=== PATIENT | female | born 1960 | race Caucasian/White ===

== ENCOUNTER 2018-05-01 22:22 | Inpatient (IN) | payer BC ==
[~2018-05-01] VITALS: Ht 170.2 cm; Wt 83.3 kg
[2018-05-02 00:09] LABS: Basophils # (auto) 0 uL; Eosinophils # (auto) 0 uL; Lymphocytes # (auto) 0.6 uL; Nucleated Red Blood Cells % 0.1 %; White Blood Cell 5.6 10^3/uL (4.4-10.8)
[2018-05-02 00:11] LABS: Basophils % (auto) 0.2 % (0.0-2.0); Eosinophils % (auto) 0.1 % (0.0-7.0); Hemoglobin 8.8 g/dL (12.2-16.2); Lymphocytes % (auto) 10.8 % (10.0-50.0); Mean Corpuscular Hemoglobin 21.8 pg (28.0-32.0); Mean Corpuscular Hgb Conc. 30.3 g/dL (32.0-36.0); Mean Corpuscular Volume 71.9 fL (80.0-100.0); Monocytes # (auto) 0.8 uL; Monocytes % (auto) 14.6 % (0.0-12.0); Neutrophils # (auto) 4.2 uL; Neutrophils % (auto) 74.3 % (37.0-80.0); Platelet Count (auto) 197 10^3/uL (140-450); Red Blood Cells 4.04 10^6/uL (4.0-5.20)
[2018-05-02 00:18] LABS: Red Cell Distribution Width 21.7 % (11.8-14.3)
[2018-05-02 00:20] LABS: Urine Bacteria FEW /hpf (None Seen); Urine Blood TRACE /uL (Negative); Urine Hyaline Cast MANY /lpf (0 - 2); Urine Specific Gravity 1.009 (1.001-1.035); Urine WBC 7 /hpf (0 - 5)
[2018-05-02 00:22] LABS: Alanine Aminotransferase 26 U/L (13-56); Albumin 3.3 g/dL (3.4-5.0); Anion Gap 18 (5-15); Aspartate Aminotransferase 32 U/L (15-37); BUN/Creatinine Ratio 14.8; Blood Alcohol < 3.0 mg/dL (0-5); Blood Urea Nitrogen 43 mg/dL (7-18); Calcium 8.6 mg/dL (8.5-10.1); Carbon Dioxide 17 mmol/L (21-32); Chloride 99 mmol/L (98-107); GFR African American 22 mL/min; GFR Non-African American 18 mL/min; Glucose 88 mg/dL (74-106); Magnesium 2.5 mg/dL (1.6-2.6); Potassium 4.5 mmol/L (3.5-5.1); Sodium 134 mmol/L (136-145)
[2018-05-02 00:24] LABS: INR 1.45 (0.9-1.15); Partial Thromboplastin Time 29.8 sec (23.78-33.04); Prothrombin Time 15.2 sec (9.27-12.13)
[2018-05-02 00:27] LABS: Alkaline Phosphatase 119 U/L (45-117); Bilirubin, Total 1.3 mg/dL (0.2-1.0); Total Protein 6.8 g/dL (6.4-8.2)
[2018-05-02] MEDS ORDERED: ONDANSETRON HCL 4 MG/2 ML VIAL IV PRN (05:30)
[2018-05-02] MEDS ORDERED: ACETAMINOPHEN 500 MG TAB PO PRN (05:30)
[2018-05-02] MEDS: ALBUTEROL SULF 2.5 MG/0.5ML(0.5%) NEB SOLN NEB SCH ×3 (06:25→18:10)
[2018-05-02] MEDS: IPRATROPIUM BROM 0.5 MG/2.5ML INH SOL NEB SCH ×3 (06:25→18:10)
[2018-05-02] MEDS: AZITHROMYCIN 500MG/ 250ML 250 ML IV SCH (06:34)
[2018-05-02 06:49] LABS: Basophils # (auto) 0 uL; Eosinophils # (auto) 0 uL; Hemoglobin 9.8 g/dL (12.2-16.2); Mean Corpuscular Hgb Conc. 30.4 g/dL (32.0-36.0); Monocytes # (auto) 0.4 uL; Nucleated Red Blood Cells % 0.2 %
[2018-05-02 06:51] LABS: Eosinophils % (auto) 0.1 % (0.0-7.0); Hematocrit 32.2 % (36.0-46.0); Lymphocytes # (auto) 0.9 uL; Lymphocytes % (auto) 20.4 % (10.0-50.0); Mean Corpuscular Hemoglobin 21.8 pg (28.0-32.0); Mean Corpuscular Volume 71.9 fL (80.0-100.0); Monocytes % (auto) 10.1 % (0.0-12.0); Neutrophils % (auto) 68.4 % (37.0-80.0); Platelet Count (auto) 184 10^3/uL (140-450); Red Blood Cells 4.48 10^6/uL (4.0-5.20); White Blood Cell 4.5 10^3/uL (4.4-10.8)
[2018-05-02 06:54] VITALS: BP 104/80
[2018-05-02 06:57] LABS: Red Cell Distribution Width 22.6 % (11.8-14.3)
[2018-05-02 07:07] LABS: BUN/Creatinine Ratio 16.9; Calcium 8.6 mg/dL (8.5-10.1); Potassium 4.6 mmol/L (3.5-5.1)
[2018-05-02] MEDS: LEVOTHYROXINE SODIUM 50 MCG TAB PO SCH (07:11)
[2018-05-02] MEDS ORDERED: LOSARTAN POTASSIUM 25 MG TAB PO SCH (10:00)
[2018-05-02] MEDS: SPIRONOLACTONE 25 MG TAB PO SCH (10:06)
[2018-05-02] MEDS: PANTOPRAZOLE 40 MG TAB PO SCH (10:06)
[2018-05-02] MEDS: FUROSEMIDE 40 MG/4 ML VIAL IV SCH (10:06)
[2018-05-02 10:20] VITALS: BP 112/63
[2018-05-02] MEDS: HYDROcodone-ACET 5/325MG TAB PO PRN ×3 (12:04→22:28)
[2018-05-02 12:49] VITALS: BP 94/51
[2018-05-02 12:51] VITALS: BP 96/64
[2018-05-02] MEDS ORDERED: cefTRIAXone 1GM/10ml IVPUSH 10 ML IV ONE (14:00)
[2018-05-02 15:08] LABS: % Iron Saturation 3.8 % (15-50)
[2018-05-02 17:00] VITALS: BP 91/50
[2018-05-02 22:00] VITALS: BP 116/85
[2018-05-02] MEDS: TEMAZEPAM 15 MG CAP PO PRN (23:15)
[2018-05-03 05:00] VITALS: BP 108/75
[2018-05-03 06:10] LABS: Basophils # (auto) 0.1 uL; Lymphocytes # (auto) 1.3 uL; Mean Corpuscular Hgb Conc. 31.9 g/dL (32.0-36.0); Nucleated Red Blood Cells % 0.1 %
[2018-05-03 06:12] LABS: Basophils % (auto) 2.2 % (0.0-2.0); Eosinophils # (auto) 0 uL; Eosinophils % (auto) 0.8 % (0.0-7.0); Hematocrit 28.1 % (36.0-46.0); Lymphocytes % (auto) 34.8 % (10.0-50.0); Mean Corpuscular Hemoglobin 22.5 pg (28.0-32.0); Mean Corpuscular Volume 70.4 fL (80.0-100.0); Monocytes # (auto) 0.6 uL; Monocytes % (auto) 14.7 % (0.0-12.0); Neutrophils # (auto) 1.8 uL; Neutrophils % (auto) 47.5 % (37.0-80.0); Platelet Count (auto) 202 10^3/uL (140-450); Red Blood Cells 3.99 10^6/uL (4.0-5.20); White Blood Cell 3.8 10^3/uL (4.4-10.8)
[2018-05-03] MEDS: LEVOTHYROXINE SODIUM 50 MCG TAB PO SCH (06:22)
[2018-05-03 06:36] LABS: Albumin 3.1 g/dL (3.4-5.0); BUN/Creatinine Ratio 18.1; Bilirubin, Total 0.7 mg/dL (0.2-1.0); Calcium 8.3 mg/dL (8.5-10.1); Magnesium 2.6 mg/dL (1.6-2.6); Potassium 4.9 mmol/L (3.5-5.1); Total Protein 6.4 g/dL (6.4-8.2)
[2018-05-03 06:43] LABS: Red Cell Distribution Width 22.3 % (11.8-14.3)
[2018-05-03] MEDS: ALBUTEROL SULF 2.5 MG/0.5ML(0.5%) NEB SOLN NEB SCH ×4 (06:54→19:04)
[2018-05-03] MEDS: IPRATROPIUM BROM 0.5 MG/2.5ML INH SOL NEB SCH ×4 (06:54→19:04)
[2018-05-03 08:24] VITALS: BP 114/87
[2018-05-03] MEDS: FUROSEMIDE 40 MG/4 ML VIAL IV SCH (09:51)
[2018-05-03] MEDS: cefTRIAXone 1GM/10ml IVPUSH 10 ML IV SCH (09:51)
[2018-05-03] MEDS: HYDROcodone-ACET 5/325MG TAB PO PRN ×2 (09:52→20:15)
[2018-05-03] MEDS: SPIRONOLACTONE 25 MG TAB PO SCH (09:52)
[2018-05-03] MEDS: PANTOPRAZOLE 40 MG TAB PO SCH (09:52)
[2018-05-03] MEDS: AZITHROMYCIN 500MG/ 250ML 250 ML IV SCH (09:53)
[2018-05-03 13:00] VITALS: BP 101/68
[2018-05-03 17:00] VITALS: BP_SYST 68
[2018-05-03 21:54] VITALS: BP 108/77
[2018-05-03] MEDS: TEMAZEPAM 15 MG CAP PO PRN (23:12)
[2018-05-04] MEDS: ALBUTEROL SULF 2.5 MG/0.5ML(0.5%) NEB SOLN NEB SCH ×4 (00:25→19:08)
[2018-05-04] MEDS: IPRATROPIUM BROM 0.5 MG/2.5ML INH SOL NEB SCH ×4 (00:25→19:08)
[2018-05-04 04:41] VITALS: BP 124/67
[2018-05-04] MEDS: LEVOTHYROXINE SODIUM 50 MCG TAB PO SCH (06:28)
[2018-05-04] MEDS: HYDROcodone-ACET 5/325MG TAB PO PRN ×3 (06:31→22:15)
[2018-05-04 06:42] LABS: Calcium 8.4 mg/dL (8.5-10.1)
[2018-05-04 06:44] LABS: BUN/Creatinine Ratio 20.7
[2018-05-04 07:48] VITALS: BP 98/72
[2018-05-04] MEDS: cefTRIAXone 1GM/10ml IVPUSH 10 ML IV SCH (09:33)
[2018-05-04] MEDS: AZITHROMYCIN 500MG/ 250ML 250 ML IV SCH (09:33)
[2018-05-04] MEDS: FUROSEMIDE 40 MG/4 ML VIAL IV SCH (09:37)
[2018-05-04] MEDS: PANTOPRAZOLE 40 MG TAB PO SCH (09:38)
[2018-05-04] MEDS: SPIRONOLACTONE 25 MG TAB PO SCH (09:38)
[2018-05-04] MEDS ORDERED: TADA20TA33 PO (11:47)
[2018-05-04] MEDS ORDERED: AMBR10TA3 PO (11:47)
[2018-05-04] MEDS ORDERED: LEVO25TA6 PO (11:50)
[2018-05-04] MEDS ORDERED: LOSA25TA9 PO (11:50)
[2018-05-04] MEDS ORDERED: SPIR25TA89 PO (11:50)
[2018-05-04] MEDS ORDERED: FURO40TA PO (11:50)
[2018-05-04] MEDS ORDERED: OMEP20TA PO (11:50)
[2018-05-04 12:29] VITALS: BP 100/70
[2018-05-04] MEDS ORDERED: FUROSEMIDE 20 MG/2 ML VIAL IV ONE (15:15)
[2018-05-04 17:25] VITALS: BP 110/78
[2018-05-04 21:55] VITALS: BP 124/81
[2018-05-04] MEDS: TEMAZEPAM 15 MG CAP PO PRN (22:15)
[2018-05-05] MEDS: ALBUTEROL SULF 2.5 MG/0.5ML(0.5%) NEB SOLN NEB SCH ×4 (01:21→20:28)
[2018-05-05] MEDS: IPRATROPIUM BROM 0.5 MG/2.5ML INH SOL NEB SCH ×4 (01:21→20:27)
[2018-05-05 04:59] VITALS: BP 127/94
[2018-05-05 06:26] LABS: Hematocrit 31.8 % (36.0-46.0); Hemoglobin 9.9 g/dL (12.2-16.2)
[2018-05-05 06:35] LABS: BUN/Creatinine Ratio 20.3; Calcium 8.3 mg/dL (8.5-10.1); Potassium 4.4 mmol/L (3.5-5.1)
[2018-05-05] MEDS: LEVOTHYROXINE SODIUM 50 MCG TAB PO SCH (06:50)
[2018-05-05] MEDS: HYDROcodone-ACET 5/325MG TAB PO PRN ×4 (06:50→22:32)
[2018-05-05 08:57] VITALS: BP 113/81
[2018-05-05 09:00] VITALS: BP 113/81
[2018-05-05] MEDS: cefTRIAXone 1GM/10ml IVPUSH 10 ML IV SCH (09:27)
[2018-05-05] MEDS: FUROSEMIDE 40 MG/4 ML VIAL IV SCH (09:28)
[2018-05-05] MEDS: AZITHROMYCIN 500MG/ 250ML 250 ML IV SCH (09:28)
[2018-05-05] MEDS: SPIRONOLACTONE 25 MG TAB PO SCH (09:28)
[2018-05-05] MEDS: PANTOPRAZOLE 40 MG TAB PO SCH (09:28)
[2018-05-05 13:00] VITALS: BP 105/69
[2018-05-05 17:00] VITALS: BP 127/95
[2018-05-05 22:00] VITALS: BP 149/95
[2018-05-05] MEDS: TEMAZEPAM 15 MG CAP PO PRN (22:32)
[2018-05-06] MEDS: ALBUTEROL SULF 2.5 MG/0.5ML(0.5%) NEB SOLN NEB SCH ×4 (01:12→18:28)
[2018-05-06] MEDS: IPRATROPIUM BROM 0.5 MG/2.5ML INH SOL NEB SCH ×4 (01:12→18:28)
[2018-05-06] MEDS: HYDROcodone-ACET 5/325MG TAB PO PRN ×2 (03:32→09:57)
[2018-05-06 05:01] VITALS: BP 144/76
[2018-05-06] MEDS: LEVOTHYROXINE SODIUM 50 MCG TAB PO SCH (06:16)
[2018-05-06 06:53] LABS: BUN/Creatinine Ratio 18.7; Calcium 8.5 mg/dL (8.5-10.1); Potassium 4.2 mmol/L (3.5-5.1)
[2018-05-06 08:50] VITALS: BP 115/78
[2018-05-06] MEDS: AZITHROMYCIN 500MG/ 250ML 250 ML IV SCH (09:54)
[2018-05-06] MEDS: cefTRIAXone 1GM/10ml IVPUSH 10 ML IV SCH (09:55)
[2018-05-06] MEDS: FUROSEMIDE 40 MG/4 ML VIAL IV SCH (09:55)
[2018-05-06] MEDS: PANTOPRAZOLE 40 MG TAB PO SCH (09:55)
[2018-05-06] MEDS: SPIRONOLACTONE 25 MG TAB PO SCH (09:56)
[2018-05-06 13:00] VITALS: BP 127/90
[2018-05-06 16:54] VITALS: BP 122/87
[2018-05-06 18:38] VITALS: BP 129/102
[2018-05-07] MEDS ORDERED: LOSA25TA9 PO (19:17)
[2018-05-07] MEDS ORDERED: FURO40TA PO (19:17)
[2018-05-07] MEDS ORDERED: SPIR25TA89 PO (19:17)
[2018-05-07] MEDS ORDERED: TADA5TAB11 PO (19:17)
[2018-05-07] MEDS ORDERED: LEVO150T10 PO (19:17)
== END 2018-05-06 19:30 | disposition home or self-care (01) | DRG 280 ==
LOC: EDBD 22:22 → ER 22:39 → TELE 22:40 → TELE-EAST 05-02 09:12
PROVIDERS: ADMIT Nurse Practitioner Family; ATTEND Internal Medicine Pulmonary Disease
DX: I21.4 Non-ST elevation (NSTEMI) myocardial infarction (principal); G93.41 Metabolic encephalopathy; I50.43 Acute on chronic combined systolic (congestive) and diastolic (congestive) heart failure; J96.20 Acute and chronic respiratory failure, unspecified whether with hypoxia or hypercapnia; N17.0 Acute kidney failure with tubular necrosis; J69.0 Pneumonitis due to inhalation of food and vomit; E87.1 Hypo-osmolality and hyponatremia; I13.0 Hypertensive heart and chronic kidney disease with heart failure and stage 1 through stage 4 chronic kidney disease, or unspecified chronic kidney disease; J44.0 Chronic obstructive pulmonary disease with (acute) lower respiratory infection; L03.116 Cellulitis of left lower limb; E44.0 Moderate protein-calorie malnutrition; I07.1 Rheumatic tricuspid insufficiency; F15.10 Other stimulant abuse, uncomplicated; S83.91XA Sprain of unspecified site of right knee, initial encounter; E03.9 Hypothyroidism, unspecified; W18.2XXA Fall in (into) shower or empty bathtub, initial encounter; I25.10 Atherosclerotic heart disease of native coronary artery without angina pectoris; I27.24 Chronic thromboembolic pulmonary hypertension; D63.8 Anemia in other chronic diseases classified elsewhere; D50.9 Iron deficiency anemia, unspecified; S83.92XA Sprain of unspecified site of left knee, initial encounter; N18.3 Chronic kidney disease, stage 3 (moderate); K21.9 Gastro-esophageal reflux disease without esophagitis; I27.21 Secondary pulmonary arterial hypertension; S73.102A Unspecified sprain of left hip, initial encounter; S73.101A Unspecified sprain of right hip, initial encounter; Z88.1 Allergy status to other antibiotic agents; Z88.8 Allergy status to other drugs, medicaments and biological substances; Y92.89 Other specified places as the place of occurrence of the external cause; Y99.8 Other external cause status; Z79.899 Other long term (current) drug therapy; Y93.E1 Activity, personal bathing and showering; Z79.01 Long term (current) use of anticoagulants; Z82.49 Family history of ischemic heart disease and other diseases of the circulatory system; Z87.891 Personal history of nicotine dependence; Z99.81 Dependence on supplemental oxygen; Z68.28 Body mass index [BMI] 28.0-28.9, adult
CPT/HCPCS: 36415; 51702; 70450; 71045; 72170; 73070; 73560; 80048; 80053; 80061; 80320; 81001; 82270; 83540; 83550; 83735; 83880; 84443; 84484; 85014; 85018; 85025; 85610; 85730; 87040; 87070; 87205; 93005; 93306; 93970; 94640; 94761; 96374; 97110; 97116; 97163; 97530; 99291; J0696

== ENCOUNTER 2018-05-07 08:01 | Inpatient (IN) | payer BC ==
[~2018-05-07] VITALS: Ht 170.2 cm; Wt 81.0 kg
[~2018-05-07 08:01] MED LIST: AMBR10TA3 PO; LEVO25TA6 PO; LOSA25TA9 PO; OMEP20TA PO; SPIR25TA89 PO
[2018-05-07 09:53] LABS: Basophils # (auto) 0.1 uL; Eosinophils # (auto) 0 uL; Monocytes # (auto) 0.5 uL; Neutrophils # (auto) 2.9 uL; Nucleated Red Blood Cells % 0.1 %; Platelet Count (auto) 221 10^3/uL (140-450)
[2018-05-07 09:55] LABS: Basophils % (auto) 1.1 % (0.0-2.0); Eosinophils % (auto) 0.8 % (0.0-7.0); Hemoglobin 9.4 g/dL (12.2-16.2); Lymphocytes # (auto) 1.1 uL; Lymphocytes % (auto) 23.1 % (10.0-50.0); Mean Corpuscular Hemoglobin 21.3 pg (28.0-32.0); Mean Corpuscular Hgb Conc. 29.4 g/dL (32.0-36.0); Mean Corpuscular Volume 72.3 fL (80.0-100.0); Monocytes % (auto) 11.3 % (0.0-12.0); Neutrophils % (auto) 63.7 % (37.0-80.0); Red Blood Cells 4.43 10^6/uL (4.0-5.20); White Blood Cell 4.6 10^3/uL (4.4-10.8)
[2018-05-07 09:56] LABS: Red Cell Distribution Width 22.7 % (11.8-14.3)
[2018-05-07 10:14] LABS: Albumin 3.2 g/dL (3.4-5.0); BUN/Creatinine Ratio 20.8; Bilirubin, Total 0.6 mg/dL (0.2-1.0); Calcium 8.2 mg/dL (8.5-10.1); Magnesium 2.4 mg/dL (1.6-2.6); Potassium 4.6 mmol/L (3.5-5.1)
[2018-05-07 10:16] LABS: Urine Bacteria NONE SEEN /hpf (None Seen); Urine Blood Negative /uL (Negative); Urine Hyaline Cast FEW /lpf (0 - 2); Urine Specific Gravity 1.008 (1.001-1.035); Urine WBC 4 /hpf (0 - 5)
[2018-05-07] MEDS ORDERED: methylPREDNISolone SOD SUCC 125 MG/2 ML VL IV ONE (10:30)
[2018-05-07] MEDS ORDERED: FUROSEMIDE 40 MG/4 ML VIAL IV ONE ×2 (11:15→14:45)
[2018-05-07] MEDS ORDERED: MORPHINE SULF INJ 2 MG/ML SYRINGE 1ML IV ONE (12:45)
[2018-05-07] MEDS ORDERED: LEVOFLOXACIN 250MG 50 ML IV ONE (14:00)
[2018-05-07] MEDS ORDERED: AZITHROMYCIN 250 MG TAB PO ONE (14:15)
[2018-05-07] MEDS ORDERED: NITROGLYCERIN 0.4 MG SL TAB SL PRN (14:15)
[2018-05-07] MEDS ORDERED: ACETAMINOPHEN 325 MG TAB PO PRN (14:15)
[2018-05-07] MEDS ORDERED: MORPHINE SULF INJ 2 MG/ML SYRINGE 1ML IV PRN (14:15)
[2018-05-07] MEDS ORDERED: LEVOFLOXACIN 500MG 100 ML IV ONE (14:30)
[2018-05-07] MEDS ORDERED: PANTOPRAZOLE 40 MG TAB PO ONE (14:45)
[2018-05-07] MEDS ORDERED: LOSARTAN POTASSIUM 25 MG TAB PO ONE (14:45)
[2018-05-07] MEDS ORDERED: POTASSIUM CHL 10 Meq TABLET PO ONE (14:45)
[2018-05-07] MEDS ORDERED: methylPREDNISolone SOD SUCC 40 MG/ML VL IV ONE (14:45)
[2018-05-07] MEDS: LEVOTHYROXINE SODIUM 25 MCG TAB PO ONE ×2 (14:50→14:59)
[2018-05-07 15:03] LABS: Lactic Acid w/Reflex 2.7 mmol/L (0.4-2.0)
[2018-05-07] MEDS: HYDROcodone-ACET 5/325MG TAB PO PRN (15:47)
[2018-05-07 16:00] VITALS: BP 135/103
[2018-05-07] MEDS: IPRATROPIUM BROM 0.5 MG/2.5ML INH SOL NEB PRN (16:36)
[2018-05-07] MEDS: ALBUTEROL SULF 2.5 MG/0.5ML(0.5%) NEB SOLN NEB PRN (16:36)
[2018-05-07] MEDS: SPIRONOLACTONE 25 MG TAB PO SCH (17:35)
[2018-05-07] MEDS: MORPHINE SULF INJ 2 MG/ML SYRINGE 1ML IV PRN ×2 (17:36→21:47)
[2018-05-07] MEDS: FUROSEMIDE 40 MG/4 ML VIAL IV SCH (17:36)
[2018-05-07] MEDS: methylPREDNISolone SOD SUCC 40 MG/ML VL IV SCH ×2 (17:36→23:57)
[2018-05-07 17:37] VITALS: BP 129/108
[2018-05-07] MEDS: ONDANSETRON HCL 4 MG/2 ML VIAL IV PRN ×2 (18:11→21:48)
[2018-05-07] MEDS: ALBUTEROL SULF 2.5 MG/0.5ML(0.5%) NEB SOLN NEB SCH (19:11)
[2018-05-07] MEDS: IPRATROPIUM BROM 0.5 MG/2.5ML INH SOL NEB SCH (19:11)
[2018-05-07] MEDS ORDERED: SPIR25TA89 PO (19:17)
[2018-05-07] MEDS ORDERED: LEVO150T10 PO (19:17)
[2018-05-07] MEDS ORDERED: FURO40TA PO (19:17)
[2018-05-07] MEDS ORDERED: LOSA25TA9 PO (19:17)
[2018-05-07] MEDS ORDERED: TADA5TAB11 PO (19:17)
[2018-05-07] MEDS: SODIUM CHLOR 0.9% PF (SALINE LOCK) 10ML VIAL/SYR IV SCH (21:48)
[2018-05-07] MEDS: TADALAFIL 20 MG PO SCH (21:48)
[2018-05-07] MEDS: POTASSIUM CHL 10 Meq TABLET PO SCH (21:49)
[2018-05-07] MEDS: TEMAZEPAM 15 MG CAP PO PRN (21:57)
[2018-05-07] MEDS ORDERED: FAMOTIDINE 20 MG TAB PO SCH (22:00)
[2018-05-07 22:13] VITALS: BP 128/91
[2018-05-07 23:38] VITALS: BP 128/91
[2018-05-08] MEDS: ALBUTEROL SULF 2.5 MG/0.5ML(0.5%) NEB SOLN NEB SCH ×4 (00:48→18:09)
[2018-05-08] MEDS: IPRATROPIUM BROM 0.5 MG/2.5ML INH SOL NEB SCH ×5 (00:48→20:50)
[2018-05-08] MEDS: ONDANSETRON HCL 4 MG/2 ML VIAL IV PRN ×2 (03:16→07:54)
[2018-05-08] MEDS: MORPHINE SULF INJ 2 MG/ML SYRINGE 1ML IV PRN ×5 (03:16→22:26)
[2018-05-08 05:33] VITALS: BP 129/84
[2018-05-08] MEDS: SODIUM CHLOR 0.9% PF (SALINE LOCK) 10ML VIAL/SYR IV SCH ×3 (06:48→22:24)
[2018-05-08] MEDS: SPIRONOLACTONE 25 MG TAB PO SCH ×2 (06:48→17:56)
[2018-05-08] MEDS: LEVOTHYROXINE SODIUM 25 MCG TAB PO SCH (06:48)
[2018-05-08] MEDS: methylPREDNISolone SOD SUCC 40 MG/ML VL IV SCH (06:50)
[2018-05-08] MEDS: FUROSEMIDE 40 MG/4 ML VIAL IV SCH ×2 (06:50→17:56)
[2018-05-08 07:33] LABS: Basophils # (auto) 0 uL; Eosinophils # (auto) 0 uL; Hemoglobin 9.8 g/dL (12.2-16.2)
[2018-05-08 07:39] LABS: Albumin 3.2 g/dL (3.4-5.0); BUN/Creatinine Ratio 23.8; Bilirubin, Total 0.9 mg/dL (0.2-1.0); Calcium 8.8 mg/dL (8.5-10.1); Potassium 4.9 mmol/L (3.5-5.1); Total Protein 6.9 g/dL (6.4-8.2)
[2018-05-08 07:40] LABS: Basophils % (auto) 0.3 % (0.0-2.0); Eosinophils % (auto) 0.1 % (0.0-7.0); Hematocrit 31.2 % (36.0-46.0); Lymphocytes # (auto) 0.3 uL; Lymphocytes % (auto) 13.2 % (10.0-50.0); Mean Corpuscular Hemoglobin 22.4 pg (28.0-32.0); Mean Corpuscular Hgb Conc. 31.3 g/dL (32.0-36.0); Mean Corpuscular Volume 71.5 fL (80.0-100.0); Monocytes # (auto) 0.2 uL; Monocytes % (auto) 6.7 % (0.0-12.0); Neutrophils % (auto) 79.7 % (37.0-80.0); Nucleated Red Blood Cells % 0.3 %; Platelet Count (auto) 198 10^3/uL (140-450); Red Blood Cells 4.36 10^6/uL (4.0-5.20); White Blood Cell 2.5 10^3/uL (4.4-10.8)
[2018-05-08 08:01] LABS: Red Cell Distribution Width 22.6 % (11.8-14.3)
[2018-05-08 09:00] VITALS: BP 120/103
[2018-05-08] MEDS: PANTOPRAZOLE 40 MG TAB PO SCH (09:38)
[2018-05-08] MEDS: MULTIPLE VITAMIN TAB PO SCH (09:38)
[2018-05-08] MEDS: POTASSIUM CHL 10 Meq TABLET PO SCH ×2 (09:38→22:28)
[2018-05-08] MEDS: TADALAFIL 20 MG PO SCH ×2 (09:39→22:26)
[2018-05-08] MEDS: AZITHROMYCIN 250 MG TAB PO SCH (09:39)
[2018-05-08] MEDS: AMBRISENTAN 10 MG PO SCH (09:39)
[2018-05-08] MEDS ORDERED: LOSARTAN POTASSIUM 25 MG TAB PO SCH (10:00)
[2018-05-08] MEDS ORDERED: LEVOFLOXACIN 500MG 100 ML IV SCH (10:00)
[2018-05-08] MEDS ORDERED: ENOXAPARIN SOD 40 MG/0.4 ML SYRINGE SC ONE (11:30)
[2018-05-08] MEDS ORDERED: cefTRIAXone 1GM/10ml IVPUSH 10 ML IV ONE ×2 (11:30→12:00)
[2018-05-08 13:00] VITALS: BP 115/50
[2018-05-08] MEDS: PROMETHAZINE HCL 25 MG/ML 1ML IV PRN ×2 (14:45→22:25)
[2018-05-08 17:47] VITALS: BP 121/88
[2018-05-08 20:00] VITALS: BP 113/66
[2018-05-08] MEDS: ALBUTEROL SULF 2.5 MG/0.5ML(0.5%) NEB SOLN NEB PRN (20:49)
[2018-05-08] MEDS: IPRATROPIUM BROM 0.5 MG/2.5ML INH SOL NEB PRN (20:50)
[2018-05-08] MEDS ORDERED: methylPREDNISolone SOD SUCC 40 MG/ML VL IV SCH (22:00)
[2018-05-08 22:14] VITALS: BP 113/66
[2018-05-08] MEDS: DOCUSATE SOD 100 MG CAP PO PRN (22:26)
[2018-05-09] MEDS: ALBUTEROL SULF 2.5 MG/0.5ML(0.5%) NEB SOLN NEB SCH ×5 (00:18→19:50)
[2018-05-09] MEDS: IPRATROPIUM BROM 0.5 MG/2.5ML INH SOL NEB SCH ×5 (00:18→19:49)
[2018-05-09] MEDS: MORPHINE SULF INJ 2 MG/ML SYRINGE 1ML IV PRN ×4 (04:50→20:24)
[2018-05-09 05:36] VITALS: BP 123/88
[2018-05-09] MEDS: FUROSEMIDE 40 MG/4 ML VIAL IV SCH ×2 (05:42→17:39)
[2018-05-09] MEDS: SPIRONOLACTONE 25 MG TAB PO SCH (05:42)
[2018-05-09] MEDS: SODIUM CHLOR 0.9% PF (SALINE LOCK) 10ML VIAL/SYR IV SCH ×3 (05:42→21:48)
[2018-05-09] MEDS: LEVOTHYROXINE SODIUM 25 MCG TAB PO SCH (06:11)
[2018-05-09 07:04] LABS: BUN/Creatinine Ratio 27.7; Calcium 8.8 mg/dL (8.5-10.1); Potassium 5.3 mmol/L (3.5-5.1)
[2018-05-09 08:00] VITALS: BP 123/89
[2018-05-09] MEDS ORDERED: cefTRIAXone 1GM/10ml IVPUSH 10 ML IV SCH (09:00)
[2018-05-09] MEDS: AMBRISENTAN 10 MG PO SCH (10:00)
[2018-05-09] MEDS: TADALAFIL 20 MG PO SCH ×2 (10:07→21:48)
[2018-05-09] MEDS: ENOXAPARIN SOD 40 MG/0.4 ML SYRINGE SC SCH (10:07)
[2018-05-09] MEDS: AZITHROMYCIN 250 MG TAB PO SCH (10:07)
[2018-05-09] MEDS: MULTIPLE VITAMIN TAB PO SCH (10:08)
[2018-05-09] MEDS: predniSONE 20 MG TAB PO SCH (10:08)
[2018-05-09] MEDS: PROMETHAZINE HCL 25 MG/ML 1ML IV PRN ×2 (10:21→20:24)
[2018-05-09] MEDS: PANTOPRAZOLE 40 MG TAB PO SCH (12:18)
[2018-05-09 13:00] VITALS: BP 100/77
[2018-05-09] MEDS: ALBUTEROL SULF 2.5 MG/0.5ML(0.5%) NEB SOLN NEB PRN (16:12)
[2018-05-09] MEDS: IPRATROPIUM BROM 0.5 MG/2.5ML INH SOL NEB PRN (16:12)
[2018-05-09 17:00] VITALS: BP 111/81
[2018-05-09] MEDS: DOCUSATE SOD 100 MG CAP PO PRN (17:44)
[2018-05-09 21:51] VITALS: BP 117/81
[2018-05-09] MEDS: TEMAZEPAM 15 MG CAP PO PRN (21:53)
[2018-05-10] MEDS: ALBUTEROL SULF 2.5 MG/0.5ML(0.5%) NEB SOLN NEB SCH ×5 (00:56→23:43)
[2018-05-10] MEDS: IPRATROPIUM BROM 0.5 MG/2.5ML INH SOL NEB SCH ×5 (00:57→23:43)
[2018-05-10 04:52] VITALS: BP 138/97
[2018-05-10] MEDS: MORPHINE SULF INJ 2 MG/ML SYRINGE 1ML IV PRN ×4 (04:59→19:58)
[2018-05-10] MEDS: PROMETHAZINE HCL 25 MG/ML 1ML IV PRN ×2 (04:59→14:04)
[2018-05-10] MEDS: SODIUM CHLOR 0.9% PF (SALINE LOCK) 10ML VIAL/SYR IV SCH ×3 (05:39→22:28)
[2018-05-10] MEDS: LEVOTHYROXINE SODIUM 25 MCG TAB PO SCH (05:39)
[2018-05-10] MEDS: FUROSEMIDE 40 MG/4 ML VIAL IV SCH (05:39)
[2018-05-10 07:35] LABS: Basophils # (auto) 0 uL; Basophils % (auto) 0.1 % (0.0-2.0); Eosinophils # (auto) 0 uL; Hemoglobin 9.6 g/dL (12.2-16.2); Lymphocytes # (auto) 1.5 uL; Mean Corpuscular Hgb Conc. 29.9 g/dL (32.0-36.0); Neutrophils # (auto) 5.5 uL; Potassium 4.4 mmol/L (3.5-5.1); Red Blood Cells 4.53 10^6/uL (4.0-5.20)
[2018-05-10 07:37] LABS: Hematocrit 32.2 % (36.0-46.0); Lymphocytes % (auto) 19.3 % (10.0-50.0); Mean Corpuscular Hemoglobin 21.2 pg (28.0-32.0); Monocytes % (auto) 12.1 % (0.0-12.0); Neutrophils % (auto) 68.5 % (37.0-80.0); Nucleated Red Blood Cells % 0.1 %; Platelet Count (auto) 280 10^3/uL (140-450)
[2018-05-10 07:40] LABS: BUN/Creatinine Ratio 28.4; Calcium 8.8 mg/dL (8.5-10.1)
[2018-05-10 07:50] LABS: Red Cell Distribution Width 22.8 % (11.8-14.3)
[2018-05-10 08:00] VITALS: BP 122/87
[2018-05-10 09:00] VITALS: BP 122/87
[2018-05-10] MEDS: AMBRISENTAN 10 MG PO SCH (10:00)
[2018-05-10] MEDS ORDERED: SPIRONOLACTONE 25 MG TAB PO SCH (10:00)
[2018-05-10] MEDS: AZITHROMYCIN 250 MG TAB PO SCH (10:08)
[2018-05-10] MEDS: predniSONE 20 MG TAB PO SCH (10:08)
[2018-05-10] MEDS: MULTIPLE VITAMIN TAB PO SCH (10:08)
[2018-05-10] MEDS: PANTOPRAZOLE 40 MG TAB PO SCH (10:08)
[2018-05-10] MEDS: ENOXAPARIN SOD 40 MG/0.4 ML SYRINGE SC SCH (10:08)
[2018-05-10] MEDS: TADALAFIL 20 MG PO SCH ×2 (10:09→22:37)
[2018-05-10] MEDS: ALBUTEROL SULF 2.5 MG/0.5ML(0.5%) NEB SOLN NEB PRN (10:59)
[2018-05-10] MEDS: IPRATROPIUM BROM 0.5 MG/2.5ML INH SOL NEB PRN (10:59)
[2018-05-10 12:27] VITALS: BP 96/73
[2018-05-10 17:18] VITALS: BP 104/79
[2018-05-10] MEDS: TEMAZEPAM 15 MG CAP PO PRN (19:58)
[2018-05-10] MEDS: DOCUSATE SOD 100 MG CAP PO PRN (20:10)
[2018-05-10 22:31] VITALS: BP 123/71
[2018-05-11] VITALS (7 sets, daily range): BP systolic 101–124; BP diastolic 67–93
[2018-05-11] MEDS: MORPHINE SULF INJ 2 MG/ML SYRINGE 1ML IV PRN ×4 (00:01→19:30)
[2018-05-11] MEDS: PROMETHAZINE HCL 25 MG/ML 1ML IV PRN ×3 (00:02→19:33)
[2018-05-11] MEDS: SODIUM CHLOR 0.9% PF (SALINE LOCK) 10ML VIAL/SYR IV SCH ×3 (05:10→22:37)
[2018-05-11] MEDS: LEVOTHYROXINE SODIUM 25 MCG TAB PO SCH (06:26)
[2018-05-11] MEDS: ALBUTEROL SULF 2.5 MG/0.5ML(0.5%) NEB SOLN NEB SCH ×4 (06:29→18:53)
[2018-05-11] MEDS: IPRATROPIUM BROM 0.5 MG/2.5ML INH SOL NEB SCH ×4 (06:30→18:53)
[2018-05-11] MEDS: FUROSEMIDE 40 MG/4 ML VIAL IV SCH (09:29)
[2018-05-11] MEDS: AZITHROMYCIN 250 MG TAB PO SCH (09:30)
[2018-05-11] MEDS: PANTOPRAZOLE 40 MG TAB PO SCH (09:30)
[2018-05-11] MEDS: predniSONE 20 MG TAB PO SCH (09:30)
[2018-05-11] MEDS: TADALAFIL 20 MG PO SCH ×2 (09:30→22:37)
[2018-05-11] MEDS: MULTIPLE VITAMIN TAB PO SCH (09:30)
[2018-05-11] MEDS: AMBRISENTAN 10 MG PO SCH (09:31)
[2018-05-11] MEDS: ENOXAPARIN SOD 40 MG/0.4 ML SYRINGE SC SCH (09:32)
[2018-05-11] MEDS ORDERED: DOCUSATE SOD 100 MG CAP PO ONE (10:30)
[2018-05-11] MEDS ORDERED: LACTULOSE 20Gm/30ML SOLN PO ONE (10:30)
[2018-05-11] MEDS ORDERED: diphenhdrAMINE HCL 50 MG/1 ML VL IV ONE (14:45)
[2018-05-11] MEDS: LOSARTAN POTASSIUM 25 MG TAB PO SCH (16:19)
[2018-05-11] MEDS: SPIRONOLACTONE 25 MG TAB PO SCH (16:20)
[2018-05-11] MEDS: TEMAZEPAM 15 MG CAP PO PRN (19:39)
[2018-05-12] MEDS: MORPHINE SULF INJ 2 MG/ML SYRINGE 1ML IV PRN ×2 (00:11→06:29)
[2018-05-12] MEDS: IPRATROPIUM BROM 0.5 MG/2.5ML INH SOL NEB SCH ×3 (00:23→11:45)
[2018-05-12] MEDS: ALBUTEROL SULF 2.5 MG/0.5ML(0.5%) NEB SOLN NEB SCH ×3 (00:23→11:45)
[2018-05-12 04:38] VITALS: BP 134/62
[2018-05-12] MEDS: SODIUM CHLOR 0.9% PF (SALINE LOCK) 10ML VIAL/SYR IV SCH ×2 (06:15→13:20)
[2018-05-12] MEDS: LEVOTHYROXINE SODIUM 25 MCG TAB PO SCH (06:18)
[2018-05-12] MEDS: PROMETHAZINE HCL 25 MG/ML 1ML IV PRN (06:30)
[2018-05-12 09:00] VITALS: BP 107/72
[2018-05-12] MEDS: SPIRONOLACTONE 25 MG TAB PO SCH (09:35)
[2018-05-12] MEDS: FUROSEMIDE 40 MG/4 ML VIAL IV SCH (09:35)
[2018-05-12] MEDS: MULTIPLE VITAMIN TAB PO SCH (09:36)
[2018-05-12] MEDS: AZITHROMYCIN 250 MG TAB PO SCH (09:36)
[2018-05-12] MEDS: PANTOPRAZOLE 40 MG TAB PO SCH (09:36)
[2018-05-12] MEDS: TADALAFIL 20 MG PO SCH (09:37)
[2018-05-12] MEDS: AMBRISENTAN 10 MG PO SCH (09:38)
[2018-05-12] MEDS: LOSARTAN POTASSIUM 25 MG TAB PO SCH (09:43)
[2018-05-12] MEDS ORDERED: predniSONE 20 MG TAB PO SCH (10:00)
[2018-05-12] MEDS: ENOXAPARIN SOD 40 MG/0.4 ML SYRINGE SC SCH (10:13)
[2018-05-12] MEDS: HYDROcodone-ACET 5/325MG TAB PO PRN (10:53)
[2018-05-12 13:00] VITALS: BP 98/61
== END 2018-05-12 15:18 | disposition home or self-care (01) | DRG 291 ==
LOC: EDBD 08:01 → ER 08:01 → TELE 08:02 → TELE-CENTR 17:25
PROVIDERS: ADMIT Internal Medicine; ATTEND Internal Medicine
DX: I13.0 Hypertensive heart and chronic kidney disease with heart failure and stage 1 through stage 4 chronic kidney disease, or unspecified chronic kidney disease (principal); I50.43 Acute on chronic combined systolic (congestive) and diastolic (congestive) heart failure; J18.9 Pneumonia, unspecified organism; J96.21 Acute and chronic respiratory failure with hypoxia; J44.0 Chronic obstructive pulmonary disease with (acute) lower respiratory infection; N39.0 Urinary tract infection, site not specified; E44.1 Mild protein-calorie malnutrition; E87.1 Hypo-osmolality and hyponatremia; J44.1 Chronic obstructive pulmonary disease with (acute) exacerbation; J45.901 Unspecified asthma with (acute) exacerbation; E87.5 Hyperkalemia; R74.8 Abnormal levels of other serum enzymes; D50.9 Iron deficiency anemia, unspecified; E03.9 Hypothyroidism, unspecified; E83.51 Hypocalcemia; N18.3 Chronic kidney disease, stage 3 (moderate); Z99.81 Dependence on supplemental oxygen; Z88.1 Allergy status to other antibiotic agents; Z88.8 Allergy status to other drugs, medicaments and biological substances
CPT/HCPCS: 36415; 71045; 80048; 80053; 81001; 83605; 83735; 83880; 84132; 84484; 85025; 87040; 87070; 87081; 87205; 93005; 94640; 96365; 96375; 97110; 97116; 97530; J1956; J2405

== ENCOUNTER 2018-06-06 15:36 | Inpatient (IN) | payer BC ==
[~2018-06-06] VITALS: Ht 170.2 cm; Wt 91.8 kg
[2018-06-06] VITALS (8 sets, daily range): BP systolic 62–102; BP diastolic 34–64
[~2018-06-06 15:36] MED LIST changes: -AMBR10TA3 PO; +FURO40TA PO; +LEVO150T10 PO; -LEVO25TA6 PO; +LOSA25TA40 PO; -LOSA25TA9 PO; -OMEP20TA PO; +SPIR25TA8 PO; -SPIR25TA89 PO; +TADA5TAB11 PO
[2018-06-06] MEDS ORDERED: DEXTROSE 50% SYRINGE 50 ML IV ONE ×2 (15:54→16:14)
[2018-06-06] MEDS ORDERED: DEXTROSE 10% 1,000 ML IV ONE ×2 (16:10→16:45)
[2018-06-06] MEDS ORDERED: SODIUM CHLORIDE 0.9% 1,000 ML IVB ONE (16:20)
[2018-06-06 16:24] LABS: Basophils # (auto) 0 uL; Basophils % (auto) 0.1 % (0.0-2.0); Eosinophils # (auto) 0 uL; Hematocrit 20.5 % (36.0-46.0); Lymphocytes # (auto) 0.8 uL; Lymphocytes % (auto) 9.2 % (10.0-50.0); Mean Corpuscular Hemoglobin 22.3 pg (28.0-32.0); Mean Corpuscular Hgb Conc. 29.2 g/dL (32.0-36.0); Mean Corpuscular Volume 76.3 fL (80.0-100.0); Monocytes # (auto) 0.8 uL; Neutrophils # (auto) 7.2 uL; Neutrophils % (auto) 81.7 % (37.0-80.0); Nucleated Red Blood Cells % 0.8 %; Platelet Count (auto) 241 10^3/uL (140-450); Red Blood Cells 2.68 10^6/uL (4.0-5.20); White Blood Cell 8.8 10^3/uL (4.4-10.8)
[2018-06-06 16:26] LABS: Red Cell Distribution Width 23.6 % (11.8-14.3)
[2018-06-06 16:42] LABS: Alanine Aminotransferase 50 U/L (13-56); Anion Gap 23 (5-15); Aspartate Aminotransferase 79 U/L (15-37); BUN/Creatinine Ratio 15.4; Blood Alcohol < 3.0 mg/dL (0-5); Blood Urea Nitrogen 49 mg/dL (7-18); Calcium 8.9 mg/dL (8.5-10.1); Carbon Dioxide 12 mmol/L (21-32); Chloride 103 mmol/L (98-107); GFR African American 19 mL/min; GFR Non-African American 16 mL/min; Sodium 138 mmol/L (136-145)
[2018-06-06] MEDS ORDERED: DEXTROSE (50%) 50ML SYRG IV ONE ×2 (16:45)
[2018-06-06 16:46] LABS: Alkaline Phosphatase 91 U/L (45-117); Total Protein 5.7 g/dL (6.4-8.2)
[2018-06-06 16:47] LABS: Lactic Acid w/Reflex 13.9 mmol/L (0.4-2.0)
[2018-06-06 16:48] LABS: INR 2.02 (0.9-1.15); Partial Thromboplastin Time 31.5 sec (23.78-33.04); Prothrombin Time 20.8 sec (9.27-12.13)
[2018-06-06 16:57] LABS: Glucose 27 mg/dL (74-106); Potassium 5.8 mmol/L (3.5-5.1)
[2018-06-06 17:43] LABS: Urine Bacteria NONE SEEN /hpf (None Seen); Urine Blood Negative /uL (Negative); Urine Mucus FEW (None Seen); Urine WBC 30 /hpf (0 - 5); Urine WBC Clumps PRESENT /hpf (None Seen)
[2018-06-06 17:50] LABS: Alcohol, Urine < 3.0 mg/dL (0-5); Amphetamine Screen, Urine POSITIVE (NEGATIVE); Barbiturate Scree,Urine NEGATIVE (NEGATIVE); Benzodiazephine Screen, Urine NEGATIVE (NEGATIVE); Cannabinoid Screen, Urine NEGATIVE (NEGATIVE); Cocaine Screen, Urine NEGATIVE (NEGATIVE); Opiate Scree,Urine POSITIVE (NEGATIVE); Phencyclidine Screen, Urine NEGATIVE (NEGATIVE)
[2018-06-06] MEDS ORDERED: PANTOPRAZOLE 40 MG/10 ML VIAL IV ONE (18:00)
[2018-06-06] MEDS ORDERED: ONDANSETRON HCL 4 MG/2 ML VIAL IV ONE (18:15)
[2018-06-06] MEDS ORDERED: PANTOPRAZOLE 80 MG in SODIUM CHL 0.9% 60 ML IV ONE (18:15)
[2018-06-06] MEDS ORDERED: ETOMIDATE (2MG/ML) 20ML VIAL IV ONE ×2 (19:29→19:30)
[2018-06-06] MEDS ORDERED: SUCCINYLCHOLINE CHLORIDE 20 MG/ML 10ML VIAL IV ONE ×2 (19:30)
[2018-06-06] MEDS ORDERED: MIDAZOLAM DRIP 50 mg/50mL 50 ML IV ONE (19:38)
[2018-06-06] MEDS: NOREPINEPHRINE 8 MG/250ML KIT 250 ML IV SCH (19:42)
[2018-06-06] MEDS: MIDAZOLAM DRIP 50 mg/50mL 50 ML IV SCH ×2 (19:51→21:32)
[2018-06-06] MEDS ORDERED: DIAZEPAM 5 MG/ML 2ML SYRG IV ONE (20:00)
[2018-06-06] MEDS: fentaNYL Drip 2500mCg/250mlNS 250 ML IV SCH (20:04)
[2018-06-06] MEDS ORDERED: fentaNYL Drip 2500mCg/250mlNS 250 ML IV ONE (20:05)
[2018-06-06] MEDS ORDERED: cefTRIAXone 1GM/10ml IVPUSH 10 ML IV ONE ×2 (20:15→23:45)
[2018-06-06] MEDS ORDERED: SODIUM BICARBONATE 8.4 % INJ 50ML VIAL IV ONE (21:30)
[2018-06-06] MEDS ORDERED: ACETAMINOPHEN 650 mg PER 20 mL UD NG PRN (22:45)
[2018-06-06] MEDS ORDERED: OCTREOTIDE ACETATE 100 MCG in SODIUM CHL 0.9% 50 ML IV ONE (22:45)
[2018-06-06] MEDS ORDERED: OCTREOTIDE ACETATE 500 MCG/ML VL ONE (23:32)
[2018-06-06] MEDS ORDERED: OCTREOTIDE ACETATE 100 MCG/ML VL ONE (23:36)
[2018-06-07] VITALS (109 sets, daily range): BP systolic 57–114; BP diastolic 32–67
[2018-06-07] MEDS: OCTREOTIDE ACETATE 500 MCG in SODIUM CHL 0.9% 99 ML IV SCH ×2 (00:09→10:21)
[2018-06-07] MEDS: NOREPINEPHRINE 8 MG/250ML KIT 250 ML IV SCH ×3 (00:11→10:22)
[2018-06-07 01:41] LABS: Hematocrit 28.2 % (36.0-46.0); Hemoglobin 8.5 g/dL (12.2-16.2)
[2018-06-07] MEDS ORDERED: AMBR10TA3 PO (02:19)
[2018-06-07] MEDS: MIDAZOLAM DRIP 50 mg/50mL 50 ML IV SCH ×2 (04:11→15:20)
[2018-06-07 06:23] LABS: Basophils # (auto) 0 uL; Basophils % (auto) 0.2 % (0.0-2.0); Eosinophils # (auto) 0 uL; Hemoglobin 8.3 g/dL (12.2-16.2); Lymphocytes # (auto) 1.7 uL; Mean Corpuscular Hemoglobin 23.5 pg (28.0-32.0); Mean Corpuscular Hgb Conc. 31.2 g/dL (32.0-36.0); Monocytes # (auto) 1.2 uL; Neutrophils # (auto) 9.2 uL; Nucleated Red Blood Cells % 0.2 %
[2018-06-07 06:25] LABS: Eosinophils % (auto) 0.1 % (0.0-7.0); Hematocrit 26.5 % (36.0-46.0); Mean Corpuscular Volume 75.2 fL (80.0-100.0); Monocytes % (auto) 10.1 % (0.0-12.0); Neutrophils % (auto) 75.6 % (37.0-80.0); Platelet Count (auto) 260 10^3/uL (140-450); Red Blood Cells 3.53 10^6/uL (4.0-5.20); White Blood Cell 12.1 10^3/uL (4.4-10.8)
[2018-06-07 06:26] LABS: Red Cell Distribution Width 23.1 % (11.8-14.3)
[2018-06-07 06:40] LABS: BUN/Creatinine Ratio 19.7; Calcium 8.2 mg/dL (8.5-10.1); Potassium 5.1 mmol/L (3.5-5.1)
[2018-06-07] MEDS: SODIUM BICARBONATE 50ML VIAL 75 ML in SOD CHL 0.45% 1,000 ML IV SCH ×2 (10:21→22:07)
[2018-06-07] MEDS: PANTOPRAZOLE 40 MG/10 ML VIAL IV SCH ×2 (10:21→22:11)
[2018-06-07 12:28] LABS: Hemoglobin 8.2 g/dL (12.2-16.2)
[2018-06-07] MEDS ORDERED: LIDOCAINE 1% (LOCAL ANESTH.) PF 5ml SDV ID ONE (13:15)
[2018-06-07] MEDS ORDERED: EPINEPHrine HCL 1 MG/10 ML SYRG ONE (14:08)
[2018-06-07] MEDS ORDERED: VASOPRESSIN 50 UNITS in D5W 5% 247.5 ML IV SCH (14:45)
[2018-06-07] MEDS: PHENYLEPHRINE INJ 20 MG in SODIUM CHL 0.9% 250 ML IV SCH ×2 (14:47→23:07)
[2018-06-07] MEDS: NOREPINEPHRINE BITARTRATE 16 MG in D5W 5% 250 ML IV SCH (14:56)
[2018-06-07] MEDS: LINEZOLID 600MG/300ML 300 ML IV SCH (15:19)
[2018-06-07] MEDS: MEROPENEM 1GM IVPB 100 ML IV SCH (17:29)
[2018-06-07 18:18] LABS: Hematocrit 23.4 % (36.0-46.0); Hemoglobin 7.1 g/dL (12.2-16.2)
[2018-06-07 19:01] LABS: Urine Bacteria NONE SEEN /hpf (None Seen); Urine Blood 1+ /uL (Negative); Urine Mucus FEW (None Seen); Urine Specific Gravity 1.012 (1.001-1.035); Urine WBC 1 /hpf (0 - 5)
[2018-06-07 19:10] LABS: Protein, Urine 38.2 mg/dL (0.0-11.9)
[2018-06-07] MEDS: fentaNYL Drip 2500mCg/250mlNS 250 ML IV SCH (20:00)
[2018-06-07] MEDS ORDERED: cefTRIAXone 1GM/10ml IVPUSH 10 ML IV SCH (21:00)
[2018-06-07] MEDS: SODIUM CHLOR 0.9% PF (SALINE LOCK) 10ML VIAL/SYR IV SCH (22:11)
[2018-06-08] VITALS (111 sets, daily range): BP systolic 78–127; BP diastolic 46–88
[2018-06-08] MEDS ORDERED: NOREPINEPHRINE BITARTRATE 2 ML IV ONE (01:50)
[2018-06-08] MEDS: NOREPINEPHRINE BITARTRATE 16 MG in D5W 5% 250 ML IV SCH ×2 (01:58→18:00)
[2018-06-08] MEDS ORDERED: METOPROLOL TARTRATE 1MG/1ML-5ML VIAL IV ONE ×2 (02:30→02:32)
[2018-06-08] MEDS: LINEZOLID 600MG/300ML 300 ML IV SCH ×2 (02:50→15:02)
[2018-06-08] MEDS: SODIUM BICARBONATE 50ML VIAL 75 ML in SOD CHL 0.45% 1,000 ML IV SCH ×2 (05:17→22:01)
[2018-06-08] MEDS: MEROPENEM 1GM IVPB 100 ML IV SCH ×2 (05:17→19:13)
[2018-06-08] MEDS ORDERED: DIGOXIN (250MCG/ML) 2 ML AMPULE ONE (05:22)
[2018-06-08] MEDS ORDERED: DIGOXIN (250MCG/ML) 2 ML AMPULE IV ONE ×2 (05:30→06:45)
[2018-06-08 06:46] LABS: Basophils # (auto) 0 uL; Eosinophils # (auto) 0 uL; Eosinophils % (auto) 0.1 % (0.0-7.0); Lymphocytes # (auto) 0.7 uL; Nucleated Red Blood Cells % 0.2 %
[2018-06-08 06:50] LABS: Basophils % (auto) 0.4 % (0.0-2.0); Hematocrit 31.1 % (36.0-46.0); Lymphocytes % (auto) 9.4 % (10.0-50.0); Mean Corpuscular Hgb Conc. 32.2 g/dL (32.0-36.0); Mean Corpuscular Volume 77.8 fL (80.0-100.0); Monocytes # (auto) 1.1 uL; Monocytes % (auto) 13.9 % (0.0-12.0); Neutrophils # (auto) 5.8 uL; Neutrophils % (auto) 76.2 % (37.0-80.0); Platelet Count (auto) 184 10^3/uL (140-450); White Blood Cell 7.7 10^3/uL (4.4-10.8)
[2018-06-08 07:01] LABS: INR 1.35 (0.9-1.15); Partial Thromboplastin Time 28.6 sec (23.78-33.04); Prothrombin Time 14.2 sec (9.27-12.13)
[2018-06-08 07:03] LABS: Phosphorus 3.4 mg/dL (2.5-4.90); Uric Acid 9.5 mg/dL (2.6-6.0)
[2018-06-08 07:11] LABS: Albumin 2.7 g/dL (3.4-5.0); BUN/Creatinine Ratio 25.8; Bilirubin, Total 0.9 mg/dL (0.2-1.0); Calcium 7.5 mg/dL (8.5-10.1); Potassium 4.2 mmol/L (3.5-5.1); Total Protein 5.3 g/dL (6.4-8.2)
[2018-06-08] MEDS: PHENYLEPHRINE INJ 20 MG in SODIUM CHL 0.9% 250 ML IV SCH (07:27)
[2018-06-08] MEDS ORDERED: SODIUM CHLORIDE 0.9% 500 ML IV ONE (08:15)
[2018-06-08] MEDS: MIDAZOLAM DRIP 50 mg/50mL 50 ML IV SCH ×2 (08:39→22:01)
[2018-06-08] MEDS: DIGOXIN (250MCG/ML) 2 ML AMPULE IV SCH ×2 (08:43→09:35)
[2018-06-08] MEDS: SODIUM CHLOR 0.9% PF (SALINE LOCK) 10ML VIAL/SYR IV SCH ×2 (09:36→22:01)
[2018-06-08] MEDS: PANTOPRAZOLE 40 MG/10 ML VIAL IV SCH ×2 (10:24→22:01)
[2018-06-08] MEDS: fentaNYL Drip 2500mCg/250mlNS 250 ML IV SCH ×2 (15:52→20:00)
[2018-06-08 22:40] LABS: Magnesium 2.4 mg/dL (1.6-2.6); Potassium 3.7 mmol/L (3.5-5.1)
[2018-06-08] MEDS: POTASSIUM CHL 20MEQ/100ML 100 ML IV SCH (23:00)
[2018-06-09] VITALS (104 sets, daily range): BP systolic 84–126; BP diastolic 46–91
[2018-06-09] MEDS: POTASSIUM CHL 20MEQ/100ML 100 ML IV SCH (01:00)
[2018-06-09] MEDS: LINEZOLID 600MG/300ML 300 ML IV SCH ×2 (03:00→14:32)
[2018-06-09] MEDS: MIDAZOLAM DRIP 50 mg/50mL 50 ML IV SCH ×2 (03:37→08:31)
[2018-06-09 04:23] LABS: Hematocrit 28.6 % (36.0-46.0); Hemoglobin 9.2 g/dL (12.2-16.2)
[2018-06-09 04:27] LABS: Albumin 2.1 g/dL (3.4-5.0); BUN/Creatinine Ratio 28.6; Bilirubin, Total 1.2 mg/dL (0.2-1.0); Calcium 7.4 mg/dL (8.5-10.1); Potassium 4.1 mmol/L (3.5-5.1); Total Protein 4.3 g/dL (6.4-8.2)
[2018-06-09] MEDS: MEROPENEM 1GM IVPB 100 ML IV SCH ×2 (05:00→17:55)
[2018-06-09] MEDS: PANTOPRAZOLE 40 MG/10 ML VIAL IV SCH ×2 (10:16→22:16)
[2018-06-09] MEDS: SODIUM CHLOR 0.9% PF (SALINE LOCK) 10ML VIAL/SYR IV SCH ×2 (10:16→22:16)
[2018-06-09] MEDS ORDERED: SODIUM CHLORIDE 0.9% 1,000 ML IV SCH (13:30)
[2018-06-09] MEDS ORDERED: SOTALOL HCL 80 MG TAB PO ONE (15:00)
[2018-06-09] MEDS ORDERED: DEXMEDETOMIDINE HCL 400 MCG in D5W 5% 96 ML IV SCH (16:36)
[2018-06-09] MEDS: fentaNYL Drip 2500mCg/250mlNS 250 ML IV SCH (20:00)
[2018-06-09] MEDS: SOTALOL HCL 80 MG TAB PO SCH (22:00)
[2018-06-09] MEDS: TADALAFIL 20 MG PO SCH (22:16)
[2018-06-10] VITALS (92 sets, daily range): BP systolic 74–138; BP diastolic 31–98
[2018-06-10] MEDS: LINEZOLID 600MG/300ML 300 ML IV SCH ×2 (02:37→14:53)
[2018-06-10 03:29] LABS: Basophils # (auto) 0 uL; Hematocrit 28.8 % (36.0-46.0); Hemoglobin 9.1 g/dL (12.2-16.2); Lymphocytes # (auto) 0.6 uL; Mean Corpuscular Hemoglobin 24.5 pg (28.0-32.0); Mean Corpuscular Hgb Conc. 31.5 g/dL (32.0-36.0); Monocytes # (auto) 0.6 uL; Monocytes % (auto) 10.9 % (0.0-12.0); Nucleated Red Blood Cells % 0.1 %; Platelet Count (auto) 130 10^3/uL (140-450)
[2018-06-10 03:31] LABS: Basophils % (auto) 0.4 % (0.0-2.0); Eosinophils # (auto) 0 uL; Eosinophils % (auto) 0.9 % (0.0-7.0); Lymphocytes % (auto) 11.5 % (10.0-50.0); Mean Corpuscular Volume 77.7 fL (80.0-100.0); Neutrophils # (auto) 3.9 uL; Neutrophils % (auto) 76.3 % (37.0-80.0); White Blood Cell 5.2 10^3/uL (4.4-10.8)
[2018-06-10 03:33] LABS: Red Cell Distribution Width 22.1 % (11.8-14.3)
[2018-06-10 03:52] LABS: Albumin 2.2 g/dL (3.4-5.0); BUN/Creatinine Ratio 26.5; Calcium 7.6 mg/dL (8.5-10.1)
[2018-06-10 03:55] LABS: Bilirubin, Total 1.1 mg/dL (0.2-1.0); Total Protein 4.6 g/dL (6.4-8.2)
[2018-06-10] MEDS: MEROPENEM 1GM IVPB 100 ML IV SCH ×2 (04:33→17:05)
[2018-06-10] MEDS: NOREPINEPHRINE BITARTRATE 16 MG in D5W 5% 250 ML IV SCH (07:10)
[2018-06-10] MEDS: LORazepam 2MG/ML-1ML VIAL IV PRN (08:08)
[2018-06-10] MEDS ORDERED: THIAMINE INJ 100 MG, MULTIPLE VITAMIN 10 ML, FOLIC ACID 1 MG, MAGNESIUM SULF SDV 50% 8 ... IV SCH ×20 (08:30→12:00)
[2018-06-10] MEDS: TADALAFIL 20 MG PO SCH ×2 (09:37→22:11)
[2018-06-10] MEDS: SODIUM CHLOR 0.9% PF (SALINE LOCK) 10ML VIAL/SYR IV SCH ×2 (09:37→22:11)
[2018-06-10] MEDS: PANTOPRAZOLE 40 MG/10 ML VIAL IV SCH ×2 (09:37→22:11)
[2018-06-10] MEDS: SOTALOL HCL 80 MG TAB PO SCH ×2 (10:00→22:00)
[2018-06-10] MEDS ORDERED: ALBUTEROL SULF 2.5 MG/0.5ML(0.5%) NEB SOLN ONE (10:14)
[2018-06-10] MEDS ORDERED: IPRATROPIUM BROM 0.5 MG/2.5ML INH SOL ONE (10:15)
[2018-06-10] MEDS ORDERED: MORPHINE SULFATE 4 MG/ML SYR/VIAL IV ONE (11:15)
[2018-06-10] MEDS: fentaNYL Drip 2500mCg/250mlNS 250 ML IV SCH (20:00)
[2018-06-11] VITALS (36 sets, daily range): BP systolic 81–139; BP diastolic 43–86
[2018-06-11] MEDS: LINEZOLID 600MG/300ML 300 ML IV SCH ×2 (02:47→15:11)
[2018-06-11 04:50] LABS: Basophils # (auto) 0 uL; Eosinophils # (auto) 0.1 uL; Hemoglobin 10.4 g/dL (12.2-16.2); Monocytes # (auto) 0.5 uL; White Blood Cell 5.7 10^3/uL (4.4-10.8)
[2018-06-11 04:52] LABS: Basophils % (auto) 0.4 % (0.0-2.0); Eosinophils % (auto) 1.3 % (0.0-7.0); Hematocrit 33.5 % (36.0-46.0); Lymphocytes % (auto) 17.3 % (10.0-50.0); Mean Corpuscular Hemoglobin 24.2 pg (28.0-32.0); Mean Corpuscular Volume 78.1 fL (80.0-100.0); Neutrophils # (auto) 4.1 uL; Nucleated Red Blood Cells % 0.2 %; Platelet Count (auto) 146 10^3/uL (140-450); Red Blood Cells 4.29 10^6/uL (4.0-5.20)
[2018-06-11 04:56] LABS: Red Cell Distribution Width 22.3 % (11.8-14.3)
[2018-06-11 05:06] LABS: BUN/Creatinine Ratio 25.8; Calcium 7.4 mg/dL (8.5-10.1); Potassium 3.9 mmol/L (3.5-5.1)
[2018-06-11] MEDS: MEROPENEM 1GM IVPB 100 ML IV SCH ×2 (05:16→17:27)
[2018-06-11] MEDS: SOTALOL HCL 80 MG TAB PO SCH ×2 (10:00→22:00)
[2018-06-11] MEDS: SODIUM CHLORIDE 0.9% 1,000 ML IV SCH ×2 (10:01→21:34)
[2018-06-11] MEDS: PANTOPRAZOLE 40 MG/10 ML VIAL IV SCH ×2 (10:01→21:33)
[2018-06-11] MEDS: SODIUM CHLOR 0.9% PF (SALINE LOCK) 10ML VIAL/SYR IV SCH ×2 (10:02→21:33)
[2018-06-11] MEDS: TADALAFIL 20 MG PO SCH ×2 (10:02→21:34)
[2018-06-11] MEDS: NOREPINEPHRINE BITARTRATE 16 MG in D5W 5% 250 ML IV SCH (14:56)
[2018-06-11] MEDS: LORazepam 2MG/ML-1ML VIAL IV PRN (22:50)
[2018-06-12] MEDS: LINEZOLID 600MG/300ML 300 ML IV SCH (03:11)
[2018-06-12 05:00] VITALS: BP 102/55
[2018-06-12] MEDS: MEROPENEM 1GM IVPB 100 ML IV SCH (05:26)
[2018-06-12 08:35] VITALS: BP 112/69
[2018-06-12] MEDS: PANTOPRAZOLE 40 MG/10 ML VIAL IV SCH ×2 (09:27→21:06)
[2018-06-12] MEDS: TADALAFIL 20 MG PO SCH ×2 (09:27→22:57)
[2018-06-12] MEDS: SOTALOL HCL 80 MG TAB PO SCH ×2 (09:39→22:00)
[2018-06-12] MEDS: SODIUM CHLOR 0.9% PF (SALINE LOCK) 10ML VIAL/SYR IV SCH ×2 (09:39→22:39)
[2018-06-12] MEDS ORDERED: DOXYCYCLINE 100 MG TAB/CAP PO ONE (11:00)
[2018-06-12] MEDS ORDERED: FUROSEMIDE 40 MG TAB PO ONE (12:00)
[2018-06-12] MEDS: MORPHINE SULFATE 4 MG/ML SYR/VIAL IV PRN ×2 (12:23→22:40)
[2018-06-12 12:24] VITALS: BP 104/74
[2018-06-12] MEDS ORDERED: cefTRIAXone 1GM/10ml IVPUSH 10 ML IV ONE (14:00)
[2018-06-12] MEDS: ONDANSETRON HCL 4 MG/2 ML VIAL IV PRN ×2 (14:56→21:07)
[2018-06-12] MEDS ORDERED: IPRATROPIUM BROM 0.5 MG/2.5ML INH SOL NEB PRN (15:30)
[2018-06-12 16:32] VITALS: BP 106/77
[2018-06-12] MEDS: ALBUTEROL SULF 2.5 MG/0.5ML(0.5%) NEB SOLN NEB SCH (19:03)
[2018-06-12] MEDS: IPRATROPIUM BROM 0.5 MG/2.5ML INH SOL NEB SCH (19:03)
[2018-06-12 20:05] VITALS: BP 106/77
[2018-06-12 22:00] VITALS: BP 102/56
[2018-06-12] MEDS: DOXYCYCLINE 100 MG TAB/CAP PO SCH (22:40)
[2018-06-13] MEDS: ALBUTEROL SULF 2.5 MG/0.5ML(0.5%) NEB SOLN NEB SCH ×3 (00:34→11:30)
[2018-06-13] MEDS: IPRATROPIUM BROM 0.5 MG/2.5ML INH SOL NEB SCH ×3 (00:34→11:30)
[2018-06-13 05:00] VITALS: BP 108/74
[2018-06-13] MEDS ORDERED: LEVOTHYROXINE SODIUM 100 MCG TAB PO SCH (07:00)
[2018-06-13 08:27] LABS: Hematocrit 31.5 % (36.0-46.0)
[2018-06-13 08:45] LABS: Albumin 2.3 g/dL (3.4-5.0); BUN/Creatinine Ratio 16.7; Bilirubin, Total 0.8 mg/dL (0.2-1.0); Calcium 7.9 mg/dL (8.5-10.1)
[2018-06-13 08:55] VITALS: BP 124/71
[2018-06-13] MEDS ORDERED: cefTRIAXone 1GM/10ml IVPUSH 10 ML IV SCH (09:00)
[2018-06-13] MEDS ORDERED: FUROSEMIDE 40 MG TAB PO SCH (10:00)
[2018-06-13] MEDS: SOTALOL HCL 80 MG TAB PO SCH (10:00)
[2018-06-13] MEDS: DOXYCYCLINE 100 MG TAB/CAP PO SCH (11:13)
[2018-06-13] MEDS: PANTOPRAZOLE 40 MG/10 ML VIAL IV SCH (11:14)
[2018-06-13] MEDS: TADALAFIL 20 MG PO SCH (11:17)
[2018-06-13] MEDS: SODIUM CHLOR 0.9% PF (SALINE LOCK) 10ML VIAL/SYR IV SCH (11:17)
[2018-06-13] MEDS ORDERED: PANT40TA2 PO (11:55)
[2018-06-13] MEDS ORDERED: DOXY-332 PO (12:09)
[2018-06-13 12:16] VITALS: BP 106/75
[2018-06-13 14:03] VITALS: BP 106/75
== END 2018-06-13 15:00 | disposition home health service (06) | DRG 208 ==
LOC: EDBD 15:36 → ER 15:42 → OVERFLOW 15:43 → ICU WEST 23:25 → EAST 06-11 17:14 → TELE-EAST 06-11 17:56
PROVIDERS: ADMIT Nurse Practitioner Family; ATTEND Internal Medicine
PROC: 30233K1 Transfusion of Nonautologous Frozen Plasma into Peripheral Vein, Percutaneous Approach (ICD-10-PCS; principal; 2018-06-06)
PROC: 5A1945Z Respiratory Ventilation, 24-96 Consecutive Hours (ICD-10-PCS; 2018-06-06)
PROC: 30233L1 Transfusion of Nonautologous Fresh Plasma into Peripheral Vein, Percutaneous Approach (ICD-10-PCS; 2018-06-06)
PROC: 30233N1 Transfusion of Nonautologous Red Blood Cells into Peripheral Vein, Percutaneous Approach (ICD-10-PCS; 2018-06-06)
PROC: 0BH17EZ Insertion of Endotracheal Airway into Trachea, Via Natural or Artificial Opening (ICD-10-PCS; 2018-06-06)
PROC: 02HV33Z Insertion of Infusion Device into Superior Vena Cava, Percutaneous Approach (ICD-10-PCS; 2018-06-07)
PROC: 3E0G8GC Introduction of Other Therapeutic Substance into Upper GI, Via Natural or Artificial Opening Endoscopic (ICD-10-PCS; 2018-06-07)
PROC: 0W3P8ZZ Control Bleeding in Gastrointestinal Tract, Via Natural or Artificial Opening Endoscopic (ICD-10-PCS; 2018-06-07)
DX: J96.20 Acute and chronic respiratory failure, unspecified whether with hypoxia or hypercapnia (principal); G92 Toxic encephalopathy; N17.0 Acute kidney failure with tubular necrosis; J69.0 Pneumonitis due to inhalation of food and vomit; D62 Acute posthemorrhagic anemia; D68.9 Coagulation defect, unspecified; E87.2 Acidosis; I13.0 Hypertensive heart and chronic kidney disease with heart failure and stage 1 through stage 4 chronic kidney disease, or unspecified chronic kidney disease; I50.32 Chronic diastolic (congestive) heart failure; K21.0 Gastro-esophageal reflux disease with esophagitis; I48.91 Unspecified atrial fibrillation; I27.20 Pulmonary hypertension, unspecified; I07.1 Rheumatic tricuspid insufficiency; E03.9 Hypothyroidism, unspecified; E16.2 Hypoglycemia, unspecified; E87.5 Hyperkalemia; I95.9 Hypotension, unspecified; J44.9 Chronic obstructive pulmonary disease, unspecified; F10.10 Alcohol abuse, uncomplicated; F15.10 Other stimulant abuse, uncomplicated; F17.200 Nicotine dependence, unspecified, uncomplicated; K29.80 Duodenitis without bleeding; K44.9 Diaphragmatic hernia without obstruction or gangrene; M51.36 Other intervertebral disc degeneration, lumbar region; N18.3 Chronic kidney disease, stage 3 (moderate); Z82.49 Family history of ischemic heart disease and other diseases of the circulatory system; Z90.710 Acquired absence of both cervix and uterus; Z91.19 Patient's noncompliance with other medical treatment and regimen; Z88.1 Allergy status to other antibiotic agents; Z88.8 Allergy status to other drugs, medicaments and biological substances; Z79.899 Other long term (current) drug therapy
CPT/HCPCS: 31500; 36415; 36430; 36569; 36600; 43243; 43255; 51702; 70450; 71045; 74176; 80048; 80053; 80061; 80307; 80320; 81001; 82550; 82570; 82805; 82962; 83605; 83735; 83880; 84100; 84132; 84156; 84300; 84443; 84484; 84550; 85014; 85018; 85025; 85610; 85730; 86850; 86900; 86901; 86920; 87040; 87070; 87077; 87081; 87086; 87205; 93005; 93306; 93970; 94002; 94003; 94640; 96361; 96365; 96375; 97116; 99291; A6257; C9113; J0330; J0696; J2185; J2250; J2405; J3480; J7060

== ENCOUNTER 2018-07-15 01:17 | Inpatient (IN) | payer BC ==
[~2018-07-15] VITALS: Ht 160 cm; Wt 78.9 kg
[~2018-07-15 01:17] MED LIST changes: +AMBR10TA3 PO; +DOXY-332 PO; +PANT40TA2 PO
[2018-07-15 01:56] LABS: Eosinophils # (auto) 0 uL; Monocytes # (auto) 0.6 uL; Neutrophils # (auto) 2.9 uL; Red Blood Cells 3.25 10^6/uL (4.0-5.20); White Blood Cell 4.7 10^3/uL (4.4-10.8)
[2018-07-15 01:57] LABS: Basophils # (auto) 0 uL; Basophils % (auto) 0.7 % (0.0-2.0); Eosinophils % (auto) 0.7 % (0.0-7.0); Hemoglobin 8.1 g/dL (12.2-16.2); Lymphocytes # (auto) 1.2 uL; Mean Corpuscular Hemoglobin 24.9 pg (28.0-32.0); Mean Corpuscular Volume 80.1 fL (80.0-100.0); Neutrophils % (auto) 61.6 % (37.0-80.0); Platelet Count (auto) 168 10^3/uL (140-450)
[2018-07-15 02:01] LABS: Urine Bacteria FEW /hpf (None Seen); Urine Blood Negative /uL (Negative); Urine Hyaline Cast FEW /lpf (0 - 2); Urine Specific Gravity 1.011 (1.001-1.035); Urine WBC 5 /hpf (0 - 5)
[2018-07-15 02:05] LABS: INR 1.1 (0.9-1.15); Partial Thromboplastin Time 27.9 sec (23.78-33.04); Prothrombin Time 11.7 sec (9.27-12.13)
[2018-07-15 02:06] LABS: Albumin 3.2 g/dL (3.4-5.0); BUN/Creatinine Ratio 13.8; Magnesium 1.9 mg/dL (1.6-2.6)
[2018-07-15 02:09] LABS: Potassium 2.9 mmol/L (3.5-5.1)
[2018-07-15 02:11] LABS: Bilirubin, Total 0.5 mg/dL (0.2-1.0); Total Protein 6.4 g/dL (6.4-8.2)
[2018-07-15] MEDS ORDERED: FUROSEMIDE 20 MG/2 ML VIAL IV ONE (02:15)
[2018-07-15] MEDS ORDERED: FUROSEMIDE 20 MG/2 ML VIAL ONE (02:27)
[2018-07-15] MEDS ORDERED: POTASSIUM CHL 20 Meq TABLET PO ONE (02:45)
[2018-07-15] MEDS ORDERED: IBUPROFEN 800 MG TAB PO ONE (03:00)
[2018-07-15] MEDS ORDERED: IOHEXOL 350 MG/ML 100ML IJ ONE (08:12)
[2018-07-15] MEDS ORDERED: cefTRIAXone 1GM/50ML D5W 50 ML IV ONE ×2 (14:00→14:15)
[2018-07-15] MEDS ORDERED: LACTULOSE 20Gm/30ML SOLN PO PRN (14:15)
[2018-07-15] MEDS ORDERED: ACETAMINOPHEN 500 MG TAB PO PRN (14:15)
[2018-07-15] MEDS ORDERED: ONDANSETRON HCL 4 MG/2 ML VIAL IV PRN (14:15)
[2018-07-15] MEDS ORDERED: NITROGLYCERIN 0.4 MG SL TAB SL PRN (14:15)
[2018-07-15] MEDS ORDERED: LORazepam 0.5 MG TAB PO PRN (14:15)
[2018-07-15] MEDS ORDERED: THIAMINE 100mg/ml INJ (200mg/2ml VIAL) IV ONE ×2 (14:15→15:30)
[2018-07-15] MEDS ORDERED: MORPHINE SULFATE 4 MG/ML SYR/VIAL IV PRN ×2 (14:15)
[2018-07-15] MEDS ORDERED: chlordiazePOXIDE HCL 25 MG CAP PO PRN (14:15)
[2018-07-15] MEDS: ENOXAPARIN SOD 40 MG/0.4 ML SYRINGE SC SCH (14:39)
[2018-07-15 15:45] LABS: Hematocrit 24.6 % (36.0-46.0); Hemoglobin 7.7 g/dL (12.2-16.2)
[2018-07-15] MEDS: CLINDAMYCIN 600MG IV 50 ML IV SCH (16:00)
[2018-07-15] MEDS ORDERED: METH10T PO (16:08)
[2018-07-15] MEDS ORDERED: MORP60TA25 PO (16:08)
[2018-07-15] MEDS ORDERED: HAL5T PO (16:08)
[2018-07-15] MEDS ORDERED: TADA20TA33 PO (16:08)
[2018-07-15] MEDS ORDERED: SENN1TAB14 PO (16:08)
[2018-07-15] MEDS ORDERED: OMEP20TA PO (16:08)
[2018-07-15] MEDS ORDERED: IPRA1SOL3 IN (16:08)
[2018-07-15 17:00] VITALS: BP 118/78
[2018-07-15] MEDS: FUROSEMIDE 40 MG/4 ML VIAL IV SCH (18:00)
[2018-07-15] MEDS: chlordiazePOXIDE HCL 5 MG CAP PO SCH (18:00)
[2018-07-15 20:00] VITALS: BP 111/68
[2018-07-15] MEDS: POTASSIUM CHL 20 Meq TABLET PO SCH (21:35)
[2018-07-15] MEDS: METHADONE HCL 10 MG TAB PO SCH (21:35)
[2018-07-15] MEDS: TEMAZEPAM 15 MG CAP PO PRN (21:36)
[2018-07-15] MEDS: SODIUM CHLOR 0.9% PF (SALINE LOCK) 10ML VIAL/SYR IV SCH (21:37)
[2018-07-15 22:00] VITALS: BP 111/68
[2018-07-15] MEDS: TADALAFIL 20 MG PO SCH (22:00)
[2018-07-15] MEDS ORDERED: PANTOPRAZOLE 40 MG PO SCH (22:00)
[2018-07-15] MEDS: PANTOPRAZOLE 40 MG TAB PO SCH (22:32)
[2018-07-16] VITALS (7 sets, daily range): BP systolic 73–112; BP diastolic 42–80
[2018-07-16] MEDS: CLINDAMYCIN 600MG IV 50 ML IV SCH ×3 (00:06→16:46)
[2018-07-16] MEDS: chlordiazePOXIDE HCL 5 MG CAP PO SCH ×3 (00:07→12:00)
[2018-07-16] MEDS: FUROSEMIDE 40 MG/4 ML VIAL IV SCH ×2 (06:01→18:00)
[2018-07-16] MEDS: SODIUM CHLOR 0.9% PF (SALINE LOCK) 10ML VIAL/SYR IV SCH ×3 (06:02→22:34)
[2018-07-16] MEDS: METHADONE HCL 10 MG TAB PO SCH ×3 (06:02→22:04)
[2018-07-16] MEDS: LEVOTHYROXINE SODIUM 50 MCG TAB PO SCH (06:32)
[2018-07-16] MEDS: SPIRONOLACTONE 25 MG TAB PO SCH (06:32)
[2018-07-16 07:45] LABS: Eosinophils # (auto) 0.1 uL; Hematocrit 24.9 % (36.0-46.0); Hemoglobin 7.9 g/dL (12.2-16.2); Lymphocytes # (auto) 1.2 uL; Monocytes # (auto) 0.4 uL; Red Blood Cells 3.11 10^6/uL (4.0-5.20); White Blood Cell 3.6 10^3/uL (4.4-10.8)
[2018-07-16 07:47] LABS: Basophils # (auto) 0 uL; Eosinophils % (auto) 1.9 % (0.0-7.0); Lymphocytes % (auto) 32.6 % (10.0-50.0); Mean Corpuscular Hemoglobin 25.4 pg (28.0-32.0); Mean Corpuscular Hgb Conc. 31.7 g/dL (32.0-36.0); Monocytes % (auto) 11.9 % (0.0-12.0); Neutrophils # (auto) 1.9 uL; Neutrophils % (auto) 52.6 % (37.0-80.0); Nucleated Red Blood Cells % 0.2 %; Platelet Count (auto) 153 10^3/uL (140-450)
[2018-07-16 07:53] LABS: Red Cell Distribution Width 22.2 % (11.8-14.3)
[2018-07-16 07:54] LABS: Albumin 2.8 g/dL (3.4-5.0); Calcium 8.2 mg/dL (8.5-10.1); Potassium 3.3 mmol/L (3.5-5.1)
[2018-07-16 07:58] LABS: BUN/Creatinine Ratio 15.5; Bilirubin, Total 0.7 mg/dL (0.2-1.0); Total Protein 5.7 g/dL (6.4-8.2)
[2018-07-16] MEDS: POTASSIUM CHL 20 Meq TABLET PO SCH ×2 (08:38→22:04)
[2018-07-16] MEDS: PANTOPRAZOLE 40 MG TAB PO SCH ×2 (08:39→22:04)
[2018-07-16] MEDS: ASPirin 81 mg TAB PO SCH (08:39)
[2018-07-16] MEDS: METOPROLOL SUCCINATE XL 50 MG TAB PO SCH (08:40)
[2018-07-16] MEDS: LOSARTAN POTASSIUM 25 MG TAB PO SCH (08:40)
[2018-07-16] MEDS: ENOXAPARIN SOD 40 MG/0.4 ML SYRINGE SC SCH (08:41)
[2018-07-16] MEDS ORDERED: LACTULOSE 20Gm/30ML SOLN PO ONE (09:45)
[2018-07-16] MEDS ORDERED: THIAMINE 100mg/ml INJ (200mg/2ml VIAL) IV SCH ×2 (10:00)
[2018-07-16] MEDS: cefTRIAXone 1GM/50ML D5W 50 ML IV SCH (10:11)
[2018-07-16] MEDS: HYDROcodone-ACET 5/325MG TAB PO PRN (10:12)
[2018-07-16] MEDS: TADALAFIL 20 MG PO SCH ×2 (11:20→22:04)
[2018-07-16] MEDS: AMBRISENTAN 10 MG PO SCH (11:20)
[2018-07-16] MEDS: IPRATROPIUM BROM 0.5 MG/2.5ML INH SOL NEB PRN (15:55)
[2018-07-16] MEDS: ALBUTEROL SULF 2.5 MG/0.5ML(0.5%) NEB SOLN NEB PRN (15:56)
[2018-07-16] MEDS: ALBUMIN 25% 100 ML IV SCH ×2 (17:00→18:08)
[2018-07-16] MEDS: IPRATROPIUM BROM 0.5 MG/2.5ML INH SOL NEB SCH (19:15)
[2018-07-16] MEDS: ALBUTEROL SULF 2.5 MG/0.5ML(0.5%) NEB SOLN NEB SCH (19:15)
[2018-07-16] MEDS: TEMAZEPAM 15 MG CAP PO PRN (22:04)
[2018-07-16] MEDS: HYDROCORTISONE ACET 25 MG RECTAL SUPP PR SCH (22:05)
[2018-07-17] VITALS (7 sets, daily range): BP systolic 80–106; BP diastolic 48–73
[2018-07-17] MEDS: ALBUTEROL SULF 2.5 MG/0.5ML(0.5%) NEB SOLN NEB SCH ×4 (00:26→18:49)
[2018-07-17] MEDS: IPRATROPIUM BROM 0.5 MG/2.5ML INH SOL NEB SCH ×4 (00:27→18:49)
[2018-07-17] MEDS: CLINDAMYCIN 600MG IV 50 ML IV SCH ×2 (00:39→08:55)
[2018-07-17] MEDS: HYDROcodone-ACET 5/325MG TAB PO PRN ×2 (02:15→08:55)
[2018-07-17 05:55] LABS: Basophils # (auto) 0 uL; Basophils % (auto) 0.7 % (0.0-2.0); Lymphocytes # (auto) 0.9 uL; Monocytes # (auto) 0.6 uL; Nucleated Red Blood Cells % 0.1 %
[2018-07-17 05:59] LABS: Eosinophils # (auto) 0 uL; Eosinophils % (auto) 0.9 % (0.0-7.0); Hematocrit 23.6 % (36.0-46.0); Hemoglobin 7.5 g/dL (12.2-16.2); Lymphocytes % (auto) 19.8 % (10.0-50.0); Mean Corpuscular Hemoglobin 25.5 pg (28.0-32.0); Mean Corpuscular Hgb Conc. 31.8 g/dL (32.0-36.0); Mean Corpuscular Volume 80.2 fL (80.0-100.0); Monocytes % (auto) 12.7 % (0.0-12.0); Neutrophils % (auto) 65.9 % (37.0-80.0); Platelet Count (auto) 151 10^3/uL (140-450); Red Blood Cells 2.94 10^6/uL (4.0-5.20); White Blood Cell 4.6 10^3/uL (4.4-10.8)
[2018-07-17] MEDS: FUROSEMIDE 40 MG/4 ML VIAL IV SCH (06:00)
[2018-07-17 06:31] LABS: Red Cell Distribution Width 21.7 % (11.8-14.3)
[2018-07-17 06:32] LABS: Albumin 3.2 g/dL (3.4-5.0); Calcium 8.1 mg/dL (8.5-10.1); Potassium 3.9 mmol/L (3.5-5.1)
[2018-07-17 06:37] LABS: BUN/Creatinine Ratio 13.2; Bilirubin, Total 0.6 mg/dL (0.2-1.0)
[2018-07-17] MEDS: SPIRONOLACTONE 25 MG TAB PO SCH (06:51)
[2018-07-17] MEDS: LEVOTHYROXINE SODIUM 50 MCG TAB PO SCH (06:51)
[2018-07-17] MEDS: METHADONE HCL 10 MG TAB PO SCH ×3 (06:52→21:44)
[2018-07-17] MEDS: SODIUM CHLOR 0.9% PF (SALINE LOCK) 10ML VIAL/SYR IV SCH ×3 (07:54→21:44)
[2018-07-17] MEDS: ALBUTEROL SULF 2.5 MG/0.5ML(0.5%) NEB SOLN NEB PRN (09:02)
[2018-07-17] MEDS: METOPROLOL SUCCINATE XL 50 MG TAB PO SCH (10:00)
[2018-07-17] MEDS: LOSARTAN POTASSIUM 25 MG TAB PO SCH (10:00)
[2018-07-17] MEDS: cefTRIAXone 1GM/50ML D5W 50 ML IV SCH (11:07)
[2018-07-17] MEDS: ASPirin 81 mg TAB PO SCH (11:09)
[2018-07-17] MEDS: ENOXAPARIN SOD 40 MG/0.4 ML SYRINGE SC SCH (11:09)
[2018-07-17] MEDS: AMBRISENTAN 10 MG PO SCH (11:10)
[2018-07-17] MEDS: TADALAFIL 20 MG PO SCH (11:10)
[2018-07-17] MEDS: THIAMINE HCL 100 MG TAB PO SCH (11:11)
[2018-07-17] MEDS: POTASSIUM CHL 20 Meq TABLET PO SCH (11:11)
[2018-07-17] MEDS: PANTOPRAZOLE 40 MG TAB PO SCH ×2 (11:11→21:44)
[2018-07-17] MEDS: HYDROCORTISONE ACET 25 MG RECTAL SUPP PR SCH ×2 (11:12→21:44)
[2018-07-17] MEDS: TEMAZEPAM 15 MG CAP PO PRN (21:43)
[2018-07-18] MEDS: ALBUTEROL SULF 2.5 MG/0.5ML(0.5%) NEB SOLN NEB SCH ×3 (00:54→12:21)
[2018-07-18] MEDS: IPRATROPIUM BROM 0.5 MG/2.5ML INH SOL NEB SCH ×3 (00:54→12:21)
[2018-07-18] MEDS: HYDROcodone-ACET 5/325MG TAB PO PRN ×2 (03:19→11:50)
[2018-07-18] MEDS: ALBUTEROL SULF 2.5 MG/0.5ML(0.5%) NEB SOLN NEB PRN (03:32)
[2018-07-18] MEDS: IPRATROPIUM BROM 0.5 MG/2.5ML INH SOL NEB PRN (03:32)
[2018-07-18 05:00] VITALS: BP 93/55
[2018-07-18] MEDS ORDERED: ALBUTEROL SULF 2.5 MG/0.5ML(0.5%) NEB SOLN NEB PRN (06:00)
[2018-07-18] MEDS: SODIUM CHLOR 0.9% PF (SALINE LOCK) 10ML VIAL/SYR IV SCH (06:06)
[2018-07-18] MEDS: METHADONE HCL 10 MG TAB PO SCH ×2 (06:18→15:31)
[2018-07-18] MEDS: SPIRONOLACTONE 25 MG TAB PO SCH (06:18)
[2018-07-18] MEDS: LEVOTHYROXINE SODIUM 50 MCG TAB PO SCH (06:19)
[2018-07-18 06:53] LABS: Basophils # (auto) 0 uL; Eosinophils # (auto) 0 uL; Monocytes # (auto) 0.5 uL; Platelet Count (auto) 165 10^3/uL (140-450); White Blood Cell 4.4 10^3/uL (4.4-10.8)
[2018-07-18 06:58] LABS: Eosinophils % (auto) 1.1 % (0.0-7.0); Hematocrit 24.3 % (36.0-46.0); Hemoglobin 7.6 g/dL (12.2-16.2); Lymphocytes # (auto) 0.7 uL; Lymphocytes % (auto) 16.8 % (10.0-50.0); Mean Corpuscular Hemoglobin 25.3 pg (28.0-32.0); Mean Corpuscular Hgb Conc. 31.4 g/dL (32.0-36.0); Mean Corpuscular Volume 80.8 fL (80.0-100.0); Monocytes % (auto) 10.3 % (0.0-12.0); Neutrophils # (auto) 3.1 uL; Neutrophils % (auto) 70.8 % (37.0-80.0); Nucleated Red Blood Cells % 0.2 %; Red Blood Cells 3.01 10^6/uL (4.0-5.20)
[2018-07-18 07:06] LABS: Potassium 4.3 mmol/L (3.5-5.1)
[2018-07-18 07:11] LABS: BUN/Creatinine Ratio 11.8; Calcium 8.6 mg/dL (8.5-10.1)
[2018-07-18 07:20] LABS: Red Cell Distribution Width 22.4 % (11.8-14.3)
[2018-07-18 08:00] VITALS: BP 91/51
[2018-07-18 09:00] VITALS: BP 94/59
[2018-07-18] MEDS: ENOXAPARIN SOD 40 MG/0.4 ML SYRINGE SC SCH (10:00)
[2018-07-18] MEDS ORDERED: ADCIRCA 20 MG PO SCH (10:00)
[2018-07-18] MEDS: LOSARTAN POTASSIUM 25 MG TAB PO SCH (10:00)
[2018-07-18] MEDS ORDERED: POTASSIUM CHL 20 Meq TABLET PO SCH (10:00)
[2018-07-18] MEDS: METOPROLOL SUCCINATE XL 50 MG TAB PO SCH (10:00)
[2018-07-18] MEDS ORDERED: FUROSEMIDE 40 MG/4 ML VIAL IV SCH (10:00)
[2018-07-18] MEDS: THIAMINE HCL 100 MG TAB PO SCH (10:00)
[2018-07-18] MEDS: AMBRISENTAN 10 MG PO SCH (11:03)
[2018-07-18] MEDS: ASPirin 81 mg TAB PO SCH (11:06)
[2018-07-18] MEDS: cefTRIAXone 1GM/50ML D5W 50 ML IV SCH (11:07)
[2018-07-18] MEDS: PANTOPRAZOLE 40 MG TAB PO SCH (11:49)
[2018-07-18] MEDS: HYDROCORTISONE ACET 25 MG RECTAL SUPP PR SCH (11:52)
[2018-07-18 12:00] VITALS: BP 95/60
== END 2018-07-18 15:30 | disposition home or self-care (01) | DRG 602 ==
LOC: EDBD 01:17 → ER 01:17 → TELE-EAST 13:44
PROVIDERS: ADMIT Internal Medicine; ATTEND Internal Medicine
DX: L03.116 Cellulitis of left lower limb (principal); I50.33 Acute on chronic diastolic (congestive) heart failure; N17.0 Acute kidney failure with tubular necrosis; J96.20 Acute and chronic respiratory failure, unspecified whether with hypoxia or hypercapnia; I13.0 Hypertensive heart and chronic kidney disease with heart failure and stage 1 through stage 4 chronic kidney disease, or unspecified chronic kidney disease; N39.0 Urinary tract infection, site not specified; E44.1 Mild protein-calorie malnutrition; I27.0 Primary pulmonary hypertension; L03.115 Cellulitis of right lower limb; E87.6 Hypokalemia; Z88.8 Allergy status to other drugs, medicaments and biological substances; D50.9 Iron deficiency anemia, unspecified; E03.9 Hypothyroidism, unspecified; Z68.30 Body mass index [BMI] 30.0-30.9, adult; J44.9 Chronic obstructive pulmonary disease, unspecified; K21.9 Gastro-esophageal reflux disease without esophagitis; N18.3 Chronic kidney disease, stage 3 (moderate); Z82.49 Family history of ischemic heart disease and other diseases of the circulatory system; F41.9 Anxiety disorder, unspecified; F41.0 Panic disorder [episodic paroxysmal anxiety]; K64.9 Unspecified hemorrhoids; Z66 Do not resuscitate; Z79.899 Other long term (current) drug therapy
CPT/HCPCS: 36415; 51702; 71045; 71275; 80048; 80053; 81001; 82550; 83735; 83880; 84132; 84443; 84484; 85014; 85018; 85025; 85379; 85610; 85652; 85730; 87081; 93005; 94640; 96372; 96374; 96375; G0378; J0696; J3490; P9047